=== PATIENT | female | born 1950 | race Caucasian/White ===

== ENCOUNTER → 2020-12-12 | Outpatient (CLI) | payer MEDICARE, MEDICAID ==
[~2020-12-12] MED LIST: ACID REDUCER200 MG PO; ALLEGRA 180MG180 MG PO; ALLFEN400 MG PO; ASPIRIN 81M81 MG/TA2 PO; ATROVENT INHALE14 GM IH; AVELOX400 MG PO; BACTRIM DS 8001 TAB PO; BACTROBAN 22GM22 GM TP; BUSPAR10 MG PO; CHROMIUM PICO500 MC1 PO; CLARITIN 1010 MG/TAB PO; CLOBETASOL PROP0.055 TP; COMBIRESP IH; CORRECTIVE LAXAT5 MG PO; DEPAKOTE 250MG250 MG PO; DESYREL 50MG50 MG PO; DEXILANT60 MG PO; DIFLUCAN200 MG PO; DOXYCYCLINE 10100 MG PO; FISH OIL1000 MG PO; FLONASEALLERGY NS; GLUCOPHAGE500 MG/TAB PO; HCTZ 25MG TAB25 MG PO; IRON325 MG PO; LAMICTAL 25MG T25 MG PO; LASIX 20MG TABL20 MG PO; LASIX 40MG TABL40 MG PO; LIPITOR 40MG TA40 MG PO; MELATIN 3 MG-11 TAB PO; MIRAPEX0.5 MG PO; MULTIPLE VITAMI1 CAP PO; NEXIUM 40MG40 MG PO; PRIL40 PO; PRINIVIL20 MG PO; PROTONIX 40MG T40 MG PO; PROVENTIL0.09 MG/A1 IH; RELAFEN500 MG PO; REQUIP3 MG PO; SEREVENT IH; SIMVASTATIN20 MG PO; SINGULAIR 110 MG/TAB PO; SINGULAIR10 MG PO; SUDAFED 12HR120 MG PO; TOPAMAX 25MG25 M1 PO; TOPAMAX50 MG PO; VENTOLIN0.09 MG IH; VESICARE 5MG5 MG PO; VESICARE10 MG PO; VITAMINC1000TA PO; VITAMIND3 5000 PO; ZANTAC 150MG T150 MG PO; ZOCOR 20MG20 MG PO; ZOFRAN ODT4 MG PO
== END ==
LOC: COL.RAD 07:31
DX: K76.9 Liver disease, unspecified (principal)
CPT/HCPCS: A9585

== ENCOUNTER 2021-02-03 09:15 | Day surgery (SDC) | payer MEDICARE, MEDICAID ==
[~2021-02-03] VITALS: Ht 154.9 cm; Wt 100.7 kg
[~2021-02-03 09:15] MED LIST changes: -ALLFEN400 MG PO; -COMBIRESP IH; -CORRECTIVE LAXAT5 MG PO; -DEPAKOTE 250MG250 MG PO; -DESYREL 50MG50 MG PO; -FLONASEALLERGY NS; -MELATIN 3 MG-11 TAB PO; -PROTONIX 40MG T40 MG PO; -REQUIP3 MG PO; -SEREVENT IH; -VITAMINC1000TA PO; -VITAMIND3 5000 PO
[2021-02-03] MEDS ORDERED: GLUCOPHAGE500 MG/TAB PO (10:49)
[2021-02-03] MEDS ORDERED: COMBIRESP IH (10:49)
[2021-02-03] MEDS ORDERED: PROTONIX 40MG T40 MG PO (10:49)
[2021-02-03] MEDS ORDERED: SEREVENT IH (10:49)
[2021-02-03] MEDS ORDERED: ALLFEN400 MG PO (10:50)
[2021-02-03] MEDS ORDERED: CORRECTIVE LAXAT5 MG PO (10:50)
[2021-02-03] MEDS ORDERED: DESYREL 50MG50 MG PO (10:51)
[2021-02-03] MEDS ORDERED: ALLEGRA 180MG180 MG PO (10:51)
[2021-02-03] MEDS ORDERED: DEPAKOTE 250MG250 MG PO (10:51)
[2021-02-03] MEDS ORDERED: MELATIN 3 MG-11 TAB PO (10:51)
[2021-02-03] MEDS ORDERED: FLONASEALLERGY NS (10:52)
[2021-02-03] MEDS ORDERED: REQUIP3 MG PO (10:52)
[2021-02-03] MEDS ORDERED: VITAMINC1000TA PO (10:53)
[2021-02-03] MEDS ORDERED: VITAMIND3 5000 PO (10:53)
[2021-02-03 10:57] VITALS: BP 144/70; PULSE 58; TEMP 97.4
[2021-02-03 11:40] VITALS: BP 117/64; PULSE 60
--- NOTE | 2021-02-03 11:40 | NUR ---
Pt to [place] [facility] via cart from [employer]. Pt awake and talking nonstop. Flights of ideas. Pt ambulates to recliner with stand by assist x2. Vss. Pudding, apple sauce and soda given per pt request. Pt continues talking as nurse leaves room. Call light within reach.
[2021-02-03 11:55] VITALS: BP 129/58; PULSE 61
--- NOTE | 2021-02-03 11:55 | NUR ---
Pt hollering that she is cold and wanting to get dressed. Warm blanket provided. Pt states "I didn't want that damn thing, I just want to get dressed." IV saline locked. Pt dressing. Call light within reach.
[2021-02-03 12:10] VITALS: BP 118/58; PULSE 61
--- NOTE | 2021-02-03 12:10 | NUR ---
IV site disocntinued with all parts intact. Discharge instructions reviewed. Awaiting social service consult. Pt sitting in chair. Call light within reach.
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
[2021-02-03 13:30] VITALS: BP 102/44; PULSE 61
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
== END 2021-02-03 12:50 | disposition home or self-care (01) ==
LOC: SDCO 09:15
DX: K21.00 Gastro-esophageal reflux disease with esophagitis, without bleeding (principal); K44.9 Diaphragmatic hernia without obstruction or gangrene; J45.909 Unspecified asthma, uncomplicated; J44.9 Chronic obstructive pulmonary disease, unspecified; G47.33 Obstructive sleep apnea (adult) (pediatric); I11.9 Hypertensive heart disease without heart failure; D18.09 Hemangioma of other sites; R16.0 Hepatomegaly, not elsewhere classified; E11.9 Type 2 diabetes mellitus without complications; G25.81 Restless legs syndrome; F41.9 Anxiety disorder, unspecified; F32.9 Major depressive disorder, single episode, unspecified; Z99.89 Dependence on other enabling machines and devices; Z79.82 Long term (current) use of aspirin; Z79.899 Other long term (current) drug therapy; Z88.5 Allergy status to narcotic agent; Z88.0 Allergy status to penicillin; Z88.8 Allergy status to other drugs, medicaments and biological substances; Z91.040 Latex allergy status; Z79.84 Long term (current) use of oral hypoglycemic drugs; Z90.89 Acquired absence of other organs
CPT/HCPCS: J2704; J7030

== ENCOUNTER → 2021-02-16 | Outpatient (CLI) | payer MEDICARE, MEDICAID ==
[~2021-02-16] MED LIST changes: +ALLFEN400 MG PO; +COMBIRESP IH; +CORRECTIVE LAXAT5 MG PO; +DEPAKOTE 250MG250 MG PO; +DESYREL 50MG50 MG PO; +FLONASEALLERGY NS; +MELATIN 3 MG-11 TAB PO; +PROTONIX 40MG T40 MG PO; +REQUIP3 MG PO; +SEREVENT IH; +VITAMINC1000TA PO; +VITAMIND3 5000 PO
== END ==
LOC: COL.PUL 10:55
DX: R06.02 Shortness of breath (principal)
CPT/HCPCS: J7674